=== PATIENT | female | born 1940 | race Caucasian/White ===

== ENCOUNTER → 2021-03-14 | Outpatient (CLI) | payer MEDICARE, OTHER ==
[~2021-03-14] VITALS: Ht 162.6 cm; Wt 94.3 kg
[~2021-03-14] MED LIST: ALPHAGAN P OP SO5 ML OP; ASPIRIN EC81 MG PO; BETAPACE160 MG PO; BETAPACE80 MG PO; CELEXA20 MG PO; CITALOPRAM HBR20 MG PO; COLACE 100MG C100 MG PO; COUMADIN 5MG TAB5 MG PO; COUMADIN2.5 MG PO; GARLIC1 EAC1 PO; GLUCOPHAGE500 MG PO; GLUCOTROL5 MG PO; GLUCOVANCE 5-51 EACH PO; GLYBURIDE-METF1 EAC1 PO; IMDUR ER TAB 3030 MG PO; KLOR-CON M2020 MEQ PO; LASIX20 MG PO; LASIX40 MG PO; LEVAQUIN500 MG PO; LIPITOR TAB 2020 MG PO; LORTAB 5-325 M1 EACH PO; LOTENSIN TAB 1010 MG PO; METOPROLOL TART25 MG PO; MULTIPLE VITAM1 EAC2 PO; NIASPAN500 MG PO; NITROSTAT 0.40.4 MG SL; PROTONIX20 MG PO; ULTRAM50 MG PO; UNITHROID50 MCG PO; VALIUM 2 MG TAB2 MG PO; VITAMIN B-121000 MCG PO; VITAMIN C250 MG PO; XALATAN2.5 ML OP
== END ==
LOC: OPSV 10:00
DX: M81.0 Age-related osteoporosis without current pathological fracture (principal)
CPT/HCPCS: 96365; J3489

== ENCOUNTER 2021-08-15 14:07 | Emergency (ER) | payer MEDICARE, OTHER ==
[~2021-08-15] VITALS: Ht 165.1 cm; Wt 85.7 kg
== END 2021-08-15 17:06 | disposition home or self-care (01) ==
LOC: ER1 14:07
DX: U07.1 COVID-19 (principal); Z23 Encounter for immunization; E11.9 Type 2 diabetes mellitus without complications; I48.91 Unspecified atrial fibrillation; I10 Essential (primary) hypertension; Z90.49 Acquired absence of other specified parts of digestive tract; Z90.710 Acquired absence of both cervix and uterus; Z88.1 Allergy status to other antibiotic agents; Z88.0 Allergy status to penicillin; Z88.8 Allergy status to other drugs, medicaments and biological substances
CPT/HCPCS: 99283; M0243

== ENCOUNTER → 2022-01-11 | Outpatient (CLI) | payer MEDICARE, OTHER | LOC: HEART 5 09:57 | DX: I25.10 Atherosclerotic heart disease of native coronary artery without angina pectoris (principal); I50.32 Chronic diastolic (congestive) heart failure; I27.20 Pulmonary hypertension, unspecified; I08.1 Rheumatic disorders of both mitral and tricuspid valves; Z95.0 Presence of cardiac pacemaker | CPT/HCPCS: 93306 ==

== ENCOUNTER → 2022-02-28 | Outpatient (CLI) | payer MEDICARE, OTHER | LOC: MAMO 02-23 14:30 | DX: Z12.31 Encounter for screening mammogram for malignant neoplasm of breast (principal) | CPT/HCPCS: 77063; 77067 ==

== ENCOUNTER 2022-05-31 17:13 | Emergency (ER) | payer OTHER, MEDICARE ==
[2022-05-31 18:04] LABS: HEMOGLOBIN 12.3 gm/dl (12.3-15.3); RED BLOOD COUNT 4.93 M/UL (4.00-5.10); WHITE BLOOD COUNT 9.7 K/UL (4.5-11.0)
[2022-05-31] MEDS ORDERED: HYDROCODON-ACE1 EAC4 PO (20:02)
== END 2022-05-31 20:15 | disposition home or self-care (01) ==
LOC: ER1 17:13
PROVIDERS: Preventive Medicine Occupational Medicine
DX: S16.1XXA Strain of muscle, fascia and tendon at neck level, initial encounter (principal); S80.02XA Contusion of left knee, initial encounter; I48.91 Unspecified atrial fibrillation; V43.52XA Car driver injured in collision with other type car in traffic accident, initial encounter; Y92.410 Unspecified street and highway as the place of occurrence of the external cause
CPT/HCPCS: 70450; 71045; 72125; 72128; 72131; 72170; 73560; 80053; 85025; 93005; 99284